=== PATIENT | male | born 1950 | race Hispanic/Latino ===

== ENCOUNTER 2018-02-07 19:13 | Inpatient (IN) | payer OTHER ==
[2018-02-07 19:27] VITALS: BMI 26.5
[2018-02-07] MEDS ORDERED: Sodium Chloride 0.9% 1,000 ML IV STA (19:37)
--- NOTE | 2018-02-07 19:43 | ED PDOC ---
Arrival/HPI - General Chief Complaint: Weakness/Neurological Deficit Time Seen by Provider: 02/07/18 19:26 Historian: Patient - History of Present Illness Narrative History of Present Illness (Text): 02/07/18 19:38 68 y/o male, pmh including gastritis, psychiatric history including schizophrenia/depression, drug allergy to PPI and penicillin, biba for overdose on thioridazine 50mg/tablet x 10 tablet last night (unable to specify what time ) which he is feeling dizziness and anxious now. Pt. stated that he can't sleep , been feeling depress, trying to take thioridazine 50mg x 10 to sleep, stated that he has no homicidal or suicidal ideation but he is overdose on this medication. Pt. has no chest pain or shortness of breath, no night sweat, no night sweat, no other medical or psychological complaints. Past Medical History - Provider Review Nursing Documentation Reviewed: Yes - Past History Past History: Non-Contributing - Infectious Disease Hx of Infectious Diseases: None - Tetanus Immunization Tetanus Immunization: Unknown - Cardiac Hx Cardiac Disorders: No Hx Pacemaker: No - Pulmonary Hx Pneumonia: Yes - Neurological Hx Dizziness: Yes - HEENT Hx HEENT Disorder: No - Renal Hx Renal Disorder: No - Endocrine/Metabolic Hx Endocrine Disorders: No - Hematological/Oncological Hx Blood Disorders: No - Integumentary Hx Dermatological Disorder: No - Musculoskeletal/Rheumatological Hx Falls: No - Gastrointestinal Hx Gastrointestinal Disorders: Yes Hx Gastroesophageal Reflux: Yes - Genitourinary/Gynecological Hx Genitourinary Disorders: No - Psychiatric Hx Depression: Yes Hx Emotional Abuse: No Hx Physical Abuse: No Hx Schizophrenia: Yes Hx Substance Use: No Other/Comment: ETOH - Past Surgical History Past Surgical History: Non-Contributing - Anesthesia Hx Anesthesia: Yes Hx Anesthesia Reactions: No Hx Malignant Hyperthermia: No - Suicidal Assessment Feels Threatened In Home Enviroment: No Family/Social History - Physician Review Nursing Documentation Reviewed: Yes Family/Social History: Unknown Family HX Smoking Status: Never Smoked Hx Alcohol Use: Yes Frequency of alcohol use: Few days per week Hx Substance Use: No Hx Substance Use Treatment: No Allergies/Home Meds Allergies/Adverse Reactions: Allergies aripiprazole [From Abilify] Allergy (Verified 06/10/16 12:23) RASH Penicillins Allergy (Verified 06/10/16 12:23) RASH MAYONNAISE Adverse Reaction (Intermediate, Uncoded 07/05/12 16:56) NAUSEA Home Medications: Home Meds Medication Instructions Recorded Confirmed Atorvastatin [Lipitor] 10 mg PO DAILY 02/08/18 02/08/18 Enalapril Maleate [Vasotec] 2.5 mg PO DAILY 02/08/18 02/08/18 Levothyroxine [Synthroid] 0.05 mg PO DAILY 02/08/18 02/08/18 QUEtiapine [SEROquel] 50 mg PO BID 02/08/18 02/08/18 Thioridazine HCl 150 mg PO QAM 02/08/18 02/08/18 Thioridazine HCl 200 mg PO HS 02/08/18 02/08/18 Vit D 50,000 iu PO QWK 02/08/18 02/08/18 traZODone [trazODONE HYDROCHLORIDE] 50 mg PO DAILY 02/08/18 02/08/18 Review of Systems - Review of Systems Constitutional: absent: Fatigue, Fevers Eyes: absent: Vision Changes ENT: absent: Hearing Changes Respiratory: absent: SOB, Cough Cardiovascular: absent: Chest Pain, Syncope Gastrointestinal: absent: Abdominal Pain, Nausea, Vomiting Musculoskeletal: absent: Arthralgias Skin: absent: Rash, Pruritis Neurological: Other (+tremors). absent: Headache, Dizziness Psychiatric: Anxiety. absent: Depression, Suicidal Ideation Physical Exam Vital Signs Temp Pulse Resp BP Pulse Ox 02/08/18 13:00 78 18 139/87 98 02/08/18 11:30 82 99 H 144/78 02/08/18 09:20 90 18 131/81 98 02/08/18 07:27 98.4 F 90 18 143/90 98 02/08/18 06:33 93 H 18 133/89 97 02/08/18 03:00 98.5 F 97 H 18 132/85 98 02/08/18 01:29 101 H 18 114/72 97 02/07/18 22:14 102 H 18 119/78 98 02/07/18 19:13 98.2 F 115 H 16 107/73 93 L - Systems Exam Head: Present: Atraumatic, Normocephalic Pupils: Present: PERRL Extroacular Muscles: Present: EOMI Conjunctiva: Present: Normal Mouth: Present: Moist Mucous Membranes Neck: Present: Normal Range of Motion Respiratory/Chest: Present: Clear to Auscultation, Good Air Exchange. No: Respiratory Distress, Accessory Muscle Use Cardiovascular: Present: Regular Rate and Rhythm, Normal S1, S2. No: Murmurs Abdomen: No: Tenderness, Distention, Peritoneal Signs, Rebound, Guarding Back: Present: Normal Inspection. No: Midline Tenderness, Paraspinal Tenderness Upper Extremity: Present: Normal Inspection. No: Cyanosis, Edema Lower Extremity: Present: Normal Inspection. No: Edema Neurological: Present: GCS=15, CN II-XII Intact, Speech Normal, Motor Func Grossly Intact, Gait Normal, Memory Normal, Other (+tremors) Skin: Present: Warm, Dry, Normal Color. No: Rashes Psychiatric: Present: Alert, Oriented x 3, Normal Insight, Normal Concentration Medical Decision Making ED Course and Treatment: 02/07/18 19:51 -Labs/ck/ua/uds -ekg -cxr -cardiac cath rn -IVF -Poison control -Observe and reassess 02/07/18 20:01 -Poison control contacted, recommend ekg and supportive care at this point. 02/07/18 22:01 -EKG: Sinus Tachycardia @ 116 BPM, no ST elevation but there is mild nonspecific ST depression on lead II/V4/V5/V6, no T wave inversion, compared with previous ekg. -Chest xray show no active disease. -Labs show no significant findings except BUN 28 (IVF ordered), Creatine 1.6 from baseline) -Troponin 0.08, aspirin ordered, needs to be trended. -Acetaminophen/salicylate level within normal limit -UA ordered and pending -UDS ordered and pending -I spoke to the poison control, recommend continue to monitor the patient for any cardiac arrythmia and anticholinergic effects. -Paging Dr. Barnett for admission as the pmd is Dr. Parham. -All labs and radiology results discussed with the patient, he agreed to be admitted. 02/07/18 22:14 -I spoke to Dr. Barnett, discussed about this case/labs/radiology result including troponin, she would admit this patient to her service and agreed this patient needs ICU evaluation. -Paging ICU for consult for this case. 02/07/18 23:01 -Blood gas reviewed with Dr. Perez and agreed with the ICU decision -Dr. Montoya, ICU, came to evaluate the patient/labs/radiology result discussed , stated that this patient doesn't need ICU and Telemetry is sufficiency. Dr. Perez agreed with this consult. -Dr. Perez would put in the admission. - Critical Care Critical Care Minutes: 45 minutes Critical Care Time: Unstable Narrative Critical Care (Text): 02/07/18 22:01 Unstable vital sign/ST depression/overdose, needs IV hydration, ICU monitor, consults. - Lab Interpretations Lab Results: 02/07/18 20:19 02/07/18 20:19 Lab Results 02/07/18 22:37: pCO2 29 L, pO2 90.0, HCO3 18.4 L, ABG pH 7.41, ABG Total CO2 19.3 L, ABG O2 Saturation 98.1 H, ABG O2 Content 20.2, ABG Base Excess -4.8 L, ABG Hemoglobin 14.9, ABG Carboxyhemoglobin 1.1, POC ABG HHb (Measured) 1.9, ABG Methemoglobin 1.0, ABG O2 Capacity 20.6, Hgb O2 Saturation 96.0, FiO2 28.0 02/07/18 20:19: Salicylates < 1 L, Acetaminophen < 10.0 L 02/07/18 20:19: Sodium 141, Potassium 4.3, Chloride 102, Carbon Dioxide 19 L, Anion Gap 24 H, BUN 28 H, Creatinine 1.6 H, Est GFR ( Amer) 53, Est GFR ( Non-Af Amer) 43, Random Glucose 191 H, Calcium 9.9, Magnesium 2.1, Total Bilirubin 0.9, AST 31, ALT 28, Alkaline Phosphatase 143 H, Lactate Dehydrogenase 419, Total Creatine Kinase 119, Troponin I 0.08 D, Total Protein 9.0 H, Albumin 4.7, Globulin 4.3, Albumin/Globulin Ratio 1.1 02/07/18 20:19: PT 13.1 H, INR 1.15, APTT 28.4 02/07/18 20:19: WBC 9.9 D, RBC 4.74, Hgb 14.5, Hct 41.0 L, MCV 86.5, MCH 30.6, MCHC 35.4, RDW 12.8, Plt Count 432, MPV 9.9, Gran % 84.7 H, Lymph % (Auto) 10.0 L, [place] % (Auto) 5.0, Eos % (Auto) 0.1 L, Baso % (Auto) 0.2, Gran # 8.40 H, Lymph # (Auto) 1.0 L, [place] # (Auto) 0.5, Eos # (Auto) 0.0, Baso # (Auto) 0.02 I have reviewed the lab results: Yes - RAD Interpretation Radiology Orders: 02/07/18 19:38 CHEST PORTABLE [RAD] Stat no active disease Disability Representative: Radiologist - EKG Interpretation EKG Interpretation (Text): 02/07/18 20:11 Sinus Tachycardia @ 116 BPM, no ST elevation but there is mild nonspecific ST depression on lead II/V4/V5/V6, no T wave inversion, compared with previous ekg. Interpreted by ED Physician: Yes Type: 12 lead EKG Comparison: Com.w/previous EKG - Medication Orders Current Medication Orders: Allopurinol (Zyloprim) 100 mg PO DAILY [facility] Last Admin: 02/08/18 10:57 Dose: 100 mg Aspirin (Aspirin Chewable) 81 mg PO DAILY [facility] Last Admin: 02/08/18 10:56 Dose: 81 mg Atorvastatin Calcium (Lipitor) 10 mg PO DIN [facility] Last Admin: 02/07/18 22:40 Dose: 10 mg Sodium Chloride (Sodium Chloride 0.9%) 1,000 mls @ 100 mls/hr IV .Q10H [facility] Last Admin: 02/08/18 07:02 Dose: 100 mls/hr eMAR Start Stop Document 02/08/18 07:02 AD (Rec: 02/08/18 07:02 AD [id number]) Intravenous Solution Start Date 02/08/18 Start Time 07:02 Meclizine HCl (Antivert) 25 mg PO TID [facility] Last Admin: 02/08/18 10:56 Dose: 25 mg Trazodone HCl (Desyrel) 50 mg PO HS [facility] Discontinued Medications Aspirin (Aspirin) 325 mg PO STAT STA Stop: 02/07/18 21:08 Last Admin: 02/07/18 21:30 Dose: 325 mg Sodium Chloride (Sodium Chloride 0.9%) 1,000 mls @ 999 mls/hr IV .Q1H1M [facility] Stop: 02/07/18 20:37 Last Admin: 02/07/18 20:15 Dose: 999 mls/hr eMAR Start Stop Document 02/07/18 20:15 AD (Rec: 02/07/18 20:[address] [id number]) Intravenous Solution Start Date 02/07/18 Start Time 20:15 - PA / ASSOCIATE DIRECTOR CAREER SERVICES / Resident Statement / has reviewed & agrees with the documentation as recorded. Disposition/Present on Arrival - Present on Arrival Any Indicators Present on Arrival: No History of DVT/PE: No History of Uncontrolled Diabetes: No Urinary Catheter: No History of Decub. Ulcer: No History Surgical Site Infection Following: None - Disposition Have Diagnosis and Disposition been Completed?: Yes Diagnosis: Overdose, Elevated troponin Disposition: HOSPITALIZED Disposition Time: 22:05 Patient Plan: Admission, Observation, Telemetry Patient Problems: Current Active Problems Problem Status Onset Elevated troponin Acute Overdose Acute Condition: GUARDED
[2018-02-07 20:44] LABS: BASO # 0.02 K/mm3 (0.0-2.0); BASO % 0.2 % (0.0-3.0); EOS % 0.1 % (1.5-5.0); GRAN # 8.4 (1.4-6.5); GRAN % 84.7 % (50.0-68.0); HEMOGLOBIN 14.5 g/dL (14.0-18.0); MEAN CELL VOLUME 86.5 fl (80.0-105.0); MEAN CORPUSCULAR HEMOGLOBIN 30.6 pg (25.0-35.0); MEAN CORPUSCULAR HGB CONC 35.4 g/dl (31.0-37.0); MEAN PLATELET VOLUME 9.9 fl (7.0-11.0); MONO # 0.5 (0.1-0.6); RBC 4.74 10^6/uL (3.5-6.1); RED CELL DISTRIBUTION WIDTH 12.8 % (11.5-14.5); WHITE BLOOD COUNT 9.9 10^3/ul (4.5-11.0)
[2018-02-07 20:48] LABS: INR 1.15; PARTIAL THROMBOPLASTIN TIME 28.4 Seconds (25.1-36.5); PROTHROMBIN TIME 13.1 SECONDS (9.4-12.5)
[2018-02-07 20:53] LABS: ACETAMINOPHEN < 10.0 ug/ml (10.0-20.0); ALB/GLOB RATIO 1.1 (1.1-1.8); ALBUMIN 4.7 g/dL (3.0-4.8); CALCIUM 9.9 mg/dL (8.4-10.5); SALICYLATE < 1 mg/dL (2.0-20.0)
[2018-02-07 21:03] LABS: TROPONIN I 0.08 ng/mL
[2018-02-07] MEDS: Sodium Chloride 0.9% 1,000 ML IV SCH (21:30)
[2018-02-07 22:39] LABS: ARTERIAL BLOOD GAS HCO3 18.4 mmol/L (21-28); ARTERIAL BLOOD GAS HEMOGLOBIN 14.9 g/dL (11.7-17.4); ARTERIAL BLOOD GAS O2 CAPACITY 20.6 mL/dl (16-24); ARTERIAL BLOOD GAS O2 CONTENT 20.2 ML/dl (15-23); ARTERIAL BLOOD GAS O2 SAT 98.1 % (95-98); ARTERIAL BLOOD GAS PCO2 29 mm/Hg (35-45); ARTERIAL BLOOD GAS PH 7.41 (7.35-7.45); ARTERIAL BLOOD GAS TCO2 19.3 mmol.L (22-28)
--- NOTE | 2018-02-07 23:42 | CP.PCM.CON ---
<Joel Persaud - Last Filed: 02/07/18 23:36> History of Present Illness - History of Present Illness History of Present Illness: ICU Consult Note (Dr. Mijares)- Elsie PGY2 CC: Thioridazine Overdose HPI: Mr. Rodríguez is a 68 year old male with a past medical history significant for schizophrenia, depression, gastritis with gastric ulcer (EGD 2012), HTN, and HLD who presents for thioridazine overdose. Patient is currently alert and oriented to person, place, time and event. Patient reports that overnight he was having difficulty falling asleep and decided to take his thioridazine since it normally makes him tired. He decided to take ten 50mg tablets at one time, approximate time of ingestion patient can't recall. Patient then reports feeling lightheaded and anxious for several hours and then decided to come to the ED. Patient denies any suicidal or homicidal ideation but does report that he has been feeling "down" for several weeks now with no apparent reason known to him. He denies any fevers, chills, headache, chest pain , palpitations, SOB, cough, wheezing, abdominal pain, N/V/D/C, changes in urine output, skin changes or any numbness/tingling of any extremity. PMH: As stated above PSH: Denies Family History: Father- of stroke Social History: Former smoker, drinks one to two beers every other day on average and denies any illicit drug use Allergies: Abilify, PCN, Mayonnaise Home Medications: As per MAR Review of Systems - Review of Systems Review of Systems: As stated in HPI, otherwise negative Past Patient History - Infectious Disease Hx of Infectious Diseases: None - Tetanus Immunizations Tetanus Immunization: Unknown - Past Social History Smoking Status: Never Smoked - CARDIAC Hx Cardiac Disorders: No Hx Pacemaker: No - PULMONARY Hx Pneumonia: Yes - NEUROLOGICAL Hx Dizziness: Yes - HEENT Hx HEENT Problems: No - RENAL Hx Chronic Kidney Disease: No - ENDOCRINE/METABOLIC Hx Endocrine Disorders: No - HEMATOLOGICAL/ONCOLOGICAL Hx Blood Disorders: No - INTEGUMENTARY Hx Dermatological Problems: No - MUSCULOSKELETAL/RHEUMATOLOGICAL Hx Falls: No - GASTROINTESTINAL Hx Gastrointestinal Disorders: Yes Hx Gastroesophageal Reflux: Yes - GENITOURINARY/GYNECOLOGICAL Hx Genitourinary Disorders: No - PSYCHIATRIC Hx Depression: Yes Hx Emotional Abuse: No Hx Physical Abuse: No Hx Schizophrenia: Yes Hx Substance Use: No Other/Comment: ETOH - SURGICAL HISTORY Hx Surgeries: No - ANESTHESIA Hx Anesthesia: Yes Hx Anesthesia Reactions: No Hx Malignant Hyperthermia: No Meds Allergies/Adverse Reactions: Allergies Allergy/AdvReac Type Severity Reaction Status Date / Time aripiprazole [From Abilify] Allergy RASH Verified 06/10/16 12:23 Penicillins Allergy RASH Verified 06/10/16 12:23 MAYONNAISE AdvReac Intermediate NAUSEA Uncoded 07/05/12 16:56 - Medications Medications: Current Medications Allopurinol (Zyloprim) 100 mg PO DAILY [facility] Aspirin (Aspirin Chewable) 81 mg PO DAILY [facility] Atorvastatin Calcium (Lipitor) 10 mg PO DIN [facility] Last Admin: 02/07/18 22:40 Dose: 10 mg Sodium Chloride (Sodium Chloride 0.9%) 1,000 mls @ 100 mls/hr IV .Q10H [facility] Last Admin: 02/07/18 21:30 Dose: 100 mls/hr Meclizine HCl (Antivert) 25 mg PO TID [facility] Trazodone HCl (Desyrel) 50 mg PO HS [facility] Physical Exam - Constitutional Appears: Non-toxic, No Acute Distress - Head Exam Head Exam: ATRAUMATIC, NORMOCEPHALIC - Eye Exam Eye Exam: EOMI, Normal appearance, PERRL - ENT Exam ENT Exam: Mucous Membranes Dry - Neck Exam Neck exam: Positive for: Full Rom. Negative for: Meningismus, Tenderness - Respiratory Exam Respiratory Exam: Clear to Auscultation Bilateral, NORMAL BREATHING PATTERN. absent: Accessory Muscle Use, Chest Wall Tenderness, Decreased Breath Sounds, Prolonged Expiratory Phase, Rales, Rhonchi, Wheezes, Respiratory Distress, Stridor - Cardiovascular Exam Cardiovascular Exam: Tachycardia, REGULAR RHYTHM, +S1, +S2. absent: Bradycardia , Clicks, Diastolic murmur, Gallop, Irregular Rhythm, JVD, RRR, Rubs, +S4, Systolic Murmur - GI/Abdominal Exam GI & Abdominal Exam: Normal Bowel Sounds, Soft. absent: Tenderness - Extremities Exam Extremities exam: Positive for: normal capillary refill, pedal pulses present. Negative for: calf tenderness, joint swelling, pedal edema, tenderness - Back Exam Back exam: absent: CVA tenderness (L), CVA tenderness (R) - Neurological Exam Neurological exam: Alert, Oriented x3 - Psychiatric Exam Psychiatric exam: Normal Affect, Normal Mood - Skin Skin Exam: Dry, Intact, Normal Color, Warm Results - Vital Signs Recent Vital Signs: Last Vital Signs Temp 98.2 F 02/07/18 19:13 Pulse 115 H 02/07/18 19:13 Resp 16 02/07/18 19:13 BP 107/73 02/07/18 19:13 Pulse Ox 93 L 02/07/18 19:13 - Labs Result Diagrams: 02/07/18 20:19 02/07/18 20:19 Labs: Laboratory Results - last 24 hr 02/07/18 02/07/18 02/07/18 20:19 20:19 20:19 WBC 9.9 D RBC 4.74 Hgb 14.5 Hct 41.0 L MCV 86.5 MCH 30.6 MCHC 35.4 RDW 12.8 Plt Count 432 MPV 9.9 Gran % 84.7 H Lymph % (Auto) 10.0 L [place] % (Auto) 5.0 Eos % (Auto) 0.1 L Baso % (Auto) 0.2 Gran # 8.40 H Lymph # (Auto) 1.0 L [place] # (Auto) 0.5 Eos # (Auto) 0.0 Baso # (Auto) 0.02 PT 13.1 H INR 1.15 APTT 28.4 pCO2 pO2 HCO3 ABG pH ABG Total CO2 ABG O2 Saturation ABG O2 Content ABG Base Excess ABG Hemoglobin ABG Carboxyhemoglobin POC ABG HHb (Measured) ABG Methemoglobin ABG O2 Capacity Hgb O2 Saturation FiO2 Sodium 141 Potassium 4.3 Chloride 102 Carbon Dioxide 19 L Anion Gap 24 H BUN 28 H Creatinine 1.6 H Est GFR ( Amer) 53 Est GFR (Non-Af Amer) 43 Random Glucose 191 H Calcium 9.9 Magnesium 2.1 Total Bilirubin 0.9 AST 31 ALT 28 Alkaline Phosphatase 143 H Lactate Dehydrogenase 419 Total Creatine Kinase 119 Troponin I 0.08 D Total Protein 9.0 H Albumin 4.7 Globulin 4.3 Albumin/Globulin Ratio 1.1 Salicylates Acetaminophen 02/07/18 02/07/18 20:19 22:37 WBC RBC Hgb Hct MCV MCH MCHC RDW Plt Count MPV Gran % Lymph % (Auto) [place] % (Auto) Eos % (Auto) Baso % (Auto) Gran # Lymph # (Auto) [place] # (Auto) Eos # (Auto) Baso # (Auto) PT INR APTT pCO2 29 L pO2 90.0 HCO3 18.4 L ABG pH 7.41 ABG Total CO2 19.3 L ABG O2 Saturation 98.1 H ABG O2 Content 20.2 ABG Base Excess -4.8 L ABG Hemoglobin 14.9 ABG Carboxyhemoglobin 1.1 POC ABG HHb (Measured) 1.9 ABG Methemoglobin 1.0 ABG O2 Capacity 20.6 Hgb O2 Saturation 96.0 FiO2 28.0 Sodium Potassium Chloride Carbon Dioxide Anion Gap BUN Creatinine Est GFR ( Amer) Est GFR (Non-Af Amer) Random Glucose Calcium Magnesium Total Bilirubin AST ALT Alkaline Phosphatase Lactate Dehydrogenase Total Creatine Kinase Troponin I Total Protein Albumin Globulin Albumin/Globulin Ratio Salicylates < 1 L Acetaminophen < 10.0 L Assessment & Plan - Assessment and Plan (Free Text) Assessment: 68 year old male with a past medical history significant for schizophrenia, depression, gastritis with gastric ulcer (EGD 2012), HTN, and HLD who presents for thioridazine overdose. Plan: Patients chart, including most recent vital signs, labs and imaging, reviewed with attending. Currently, patient does not meet ICU admission criteria given his hemodynamic status, appropriate mental status and ability to maintain his own airway. Poison control was contacted and recommended supportive care. Further recommendations per primary team. Please reconsult as needed. - Date & Time Date: 02/08/18 Time: 01:02 <Constantine Mijares - Last Filed: 02/08/18 05:26> Meds - Medications Medications: Current Medications Allopurinol (Zyloprim) 100 mg PO DAILY [facility] Aspirin (Aspirin Chewable) 81 mg PO DAILY [facility] Atorvastatin Calcium (Lipitor) 10 mg PO DIN [facility] Last Admin: 02/07/18 22:40 Dose: 10 mg Sodium Chloride (Sodium Chloride 0.9%) 1,000 mls @ 100 mls/hr IV .Q10H [facility] Last Admin: 02/07/18 21:30 Dose: 100 mls/hr Meclizine HCl (Antivert) 25 mg PO TID [facility] Trazodone HCl (Desyrel) 50 mg PO HS [facility] Results - Vital Signs Recent Vital Signs: Last Vital Signs Temp 98.2 F 02/07/18 19:13 Pulse 97 H 02/08/18 03:00 Resp 18 02/08/18 03:00 BP 132/85 02/08/18 03:00 Pulse Ox 98 02/08/18 03:00 - Labs Result Diagrams: 02/07/18 20:19 02/07/18 20:19 Labs: Laboratory Results - last 24 hr 02/07/18 02/08/18 02/08/18 23:20 04:15 04:15 Troponin I 0.07 Triglycerides 118 Cholesterol 138 LDL Cholesterol Direct 76 HDL Cholesterol 35 Urine Color Yellow Urine Appearance Slight-cloudy Urine pH 6.0 Ur Specific [place] >= 1.030 Urine Protein 30 H Urine Glucose (UA) Negative Urine Ketones 15 H Urine Blood Negative Urine Nitrate Negative Urine Bilirubin Small H Urine Urobilinogen 0.2 Ur Leukocyte Esterase Negative Urine RBC Negative Urine WBC 0 - 2 Ur Epithelial Cells 4 - 5 Urine Bacteria Mod Hyaline Casts 0 - 2 Urine Other Mucus Urine Opiates Screen Negative Urine Methadone Screen Negative Ur Barbiturates Screen Negative Ur Phencyclidine Scrn Negative Ur Amphetamines Screen Negative U Benzodiazepines Scrn Negative U Oth Cocaine Metabols Negative U Cannabinoids Screen Positive H Attending/Attestation - Attestation I have personally seen and examined this patient.: Yes I have fully participated in the care of the patient.: Yes I have reviewed all pertinent clinical information: Yes Notes (Text): Pt. claimed he was trying to sleep and took 10 tabs of Seroquel 100 mg and 8 tabs of thioridazine. Recommend Tele admit, serial EKG, Mg, phos and troponin, 1 :1 sitter, psych consult to R/O Suicide intent and poison control contact. 02/08/18 05:24
[2018-02-07 23:55] LABS: TROPONIN I 0.07 ng/mL
[2018-02-08 04:42] LABS: URINE BILIRUBIN SMALL (NEGATIVE); URINE BLOOD NEGATIVE (NEGATIVE); URINE GLUCOSE (UA) NEGATIVE (NEGATIVE); URINE LEUKOCYTE ESTERASE NEGATIVE Leu/uL (NEGATIVE); URINE PROTEIN 30 mg/dL (<30 mg/dL); URINE UROBILINOGEN 0.2 E.U./dL (<1 E.U./dL)
[2018-02-08 04:43] LABS: URINE APPEARANCE SLIGHT-CLOUDY (CLEAR); URINE COLOR YELLOW (YELLOW)
[2018-02-08 05:07] LABS: URINE RBC NEGATIVE /hpf (0-2); URINE WBC 0 - 2 /hpf (0-6)
[2018-02-08 05:08] LABS: URINE BACTERIA MOD (NEG); URINE HYALINE CAST 0 - 2 /hpf
[2018-02-08 05:13] LABS: BENZODIAZEPINES, UR NEGATIVE (NEGATIVE); PHENCYCLIDINE, UR NEGATIVE (NEGATIVE)
[2018-02-08 05:15] LABS: BARBITURATES, UR NEGATIVE (NEGATIVE); OPIATES, UR NEGATIVE (NEGATIVE)
[2018-02-08 05:36] LABS: BASO # 0.04 K/mm3 (0.0-2.0); BASO % 0.6 % (0.0-3.0); EOS # 0.2 (0.0-0.7); EOS % 2.4 % (1.5-5.0); GRAN # 4.56 (1.4-6.5); GRAN % 68.4 % (50.0-68.0); HEMOGLOBIN 12.8 g/dL (14.0-18.0); LYMPH # 1.3 (1.2-3.4); LYMPH % 19.8 % (22.0-35.0); MEAN CELL VOLUME 86.3 fl (80.0-105.0); MEAN CORPUSCULAR HEMOGLOBIN 30.3 pg (25.0-35.0); MEAN CORPUSCULAR HGB CONC 35.2 g/dl (31.0-37.0); MEAN PLATELET VOLUME 9.7 fl (7.0-11.0); MONO # 0.6 (0.1-0.6); MONO % 8.8 % (1.0-6.0); RBC 4.22 10^6/uL (3.5-6.1)
[2018-02-08 05:37] LABS: WHITE BLOOD COUNT 6.7 10^3/ul (4.5-11.0)
[2018-02-08 06:00] LABS: ALBUMIN 3.6 g/dL (3.0-4.8); ALT/SGPT 29 U/L (7-56); AST/SGOT 34 U/L (17-59); BLOOD UREA NITROGEN 26 mg/dL (7-21); CALCIUM 8.5 mg/dL (8.4-10.5); GFR NON-AFRICAN AMERICAN > 60
[2018-02-08] MEDS: Sodium Chloride 0.9% 1,000 ML IV SCH (07:02)
[2018-02-08 08:03] LABS: FREE T4 1.34 ng/dL (0.78-2.19)
--- NOTE | 2018-02-08 09:35 | HP ---
Copied To: Jenna Barnett MD Attending MD: Jenna Barnett MD HISTORY OF PRESENT ILLNESS: The patient is 68 years old with longstanding history of paranoid schizophrenia and depression. Patient states he has been having difficulty sleeping lately so last night, he took 10 tablets of thioridazine so he can sleep. He denies suicidal ideation. He does not want to kill himself. He wanted to have a good night sleep. He came to Emergency Room because of feeling weak, tired, dizzy, lightheaded. Denies any nausea or vomiting. No history of abdominal pain. No fever. No chills. No cough, congestion. PAST MEDICAL HISTORY: Significant for: 1. Hypertension. 2. Hyperlipidemia. 3. History of chronic kidney disease. 4. Peptic ulcer disease. ALLERGIES: HE IS ALLERGIC TO PENICILLIN, ABILIFY AND OMEPRAZOLE. MEDICATIONS AT HOME: He is on atorvastatin 10 mg daily, aspirin 81 daily, allopurinol 100 mg daily, trazodone 50 mg at bedtime, thioridazine 50 mg daily, meclizine 25 three times a day. SOCIAL HISTORY: Denies smoking, drinking; however, drinks socially once in a while. REVIEW OF SYSTEMS: Generalized weakness, feeling weak, dizzy. PHYSICAL EXAMINATION: GENERAL: He is awake, alert, oriented, able to communicate. VITAL SIGNS: He is afebrile, pulse 115, respirations 16, blood pressure 107/73. LUNGS: Bilateral fair airflow. No rhonchi or crackle. HEART: S1, S2 audible. ABDOMEN: Soft, obese, nontender. No rebound. No guarding. NEUROLOGICAL: He is awake, alert, oriented, communicative. LABORATORY DATA: WBC is 9.9, hemoglobin 14.5, hematocrit 41, platelets 432. PT 13.1. INR 1.15. Chemistry: Sodium 141, potassium 4.3, chloride 102, CO2 19, BUN 28, creatinine 1.6. Blood sugar 191. LFTs are within normal limit. Alkaline phosphatase 143, total protein 9. Urine tox shows Tylenol less than 10. Salicylate less than 1. DIAGNOSTIC DATA: X-ray of chest is unremarkable. ASSESSMENT AND PLAN: 1. Generalized weakness and dizziness secondary to overdose of thioridazine. 2. History of schizophrenia. 3. Hypertension. 4. Chronic kidney disease. 5. Hyperlipidemia. So, plan is patient will be observed overnight in ICU. Start him on IV fluid. We will monitor his electrolyte. We will resume his usual medication and also request for Psychiatric consult. Jenna Barnett MD
--- NOTE | 2018-02-08 10:04 | RAD ---
Date of service: 02/07/2018 HISTORY: medical clearance COMPARISON: 06/10/2016 FINDINGS: LUNGS: No active pulmonary disease. PLEURA: No significant pleural effusion identified, no pneumothorax apparent. CARDIOVASCULAR: Normal. OSSEOUS STRUCTURES: No significant abnormalities. VISUALIZED UPPER ABDOMEN: Normal. OTHER FINDINGS: None. IMPRESSION: No active disease.
--- NOTE | 2018-02-08 11:06 | CARD ---
APPROVED REPORT Date of service: 02/07/2018 EKG Measurement Heart [id number] <Conclusion> Sinus tachycardia LAD PRWP Nonspecific ST abnormality Prolonged QTc
[2018-02-08] MEDS ORDERED: Pneumococcal 23-Valent Vaccine IM ONE (15:46)
[2018-02-08] MEDS ORDERED: Potassium Chloride 20 mEq ER Tab PO ONE (17:30)
--- NOTE | 2018-02-08 21:32 | PN ---
Copied To: Jenna Barnett MD Attending MD: Jenna Barnett MD DATE: 02/08/2018 SUBJECTIVE: The patient is 68 years old, who came last night and he was sleepy, lethargic and was feeling lightheaded. The patient states he has no intention to have suicidal attempt; however, he wanted to have a good sleep. PHYSICAL EXAMINATION: GENERAL: He is awake, alert, oriented, communicative. VITAL SIGNS: He is afebrile, pulse 97, respirations 18, blood pressure 147/83. LUNGS: Bilateral fair airflow. No rhonchi or crackle. HEART: S1 and S2 audible. ABDOMEN: Soft. Nontender. No rebound. No guarding. NEUROLOGICAL: The patient is awake, alert, oriented, communicative. LABORATORY EXAM: WBC 6.9, hemoglobin 12.8, hematocrit 36.4, platelet 381. Chemistry: Sodium 142, potassium 3.5, chloride 108, CO2 of 20, BUN 26, creatinine 1.2, blood sugar of 121. LFTs are within normal limit. Urine tox positive for marijuana. ASSESSMENT: 1. Status post drug overdose. The patient is clinically stable and EKG is stable. 2. History of hypertension. 3. Hyperlipidemia. 4. History of schizophrenia. 5. History of depression. 6. Gastritis. PLAN: The patient will be admitted on Med-Surg. We will resume his usual medications. Awaiting Psych input. The patient is eating and tolerating. I will discontinue IV fluid. We will follow up his electrolyte in the a.m. Jenna Barnett MD
[2018-02-09 07:27] LABS: ALBUMIN 3.8 g/dL (3.0-4.8); ALT/SGPT 23 U/L (7-56); AST/SGOT 29 U/L (17-59); BLOOD UREA NITROGEN 12 mg/dL (7-21); GFR NON-AFRICAN AMERICAN > 60
--- NOTE | 2018-02-09 08:06 | CON ---
Copied To: Osorio Worley MD Attending MD: Osorio Worley MD DATE: 02/08/2018 HISTORY OF PRESENT ILLNESS: Please note that the patient was very reluctant regarding participation in interview with me due to his paranoia. I was able to obtain some information directly from the patient and other information was obtained from ER report. Please note that Mr. Rodríguez is a 68-year-old male with a psychiatric history of schizophrenia versus depression with psychotic features versus schizoaffective disorder (the patient likely is suffering from schizoaffective disorder), who denies any prior history of suicide attempt; however, does report history of depression and hallucinations, who presented to the ER because of thioridazine overdose. The patient was noted to be alert and oriented to person, place, time and events when he was consulted by Dr. Persaud in the ICU. Apparently, the patient told to Dr. Persaud that he took ten 50 mg tablets, one at a time, off the Mellaril because he has trouble falling asleep. When I met with him at bedside, he actually refused to discuss the circumstances of his presentation indicating that he did not trust me. He continues to be resistant to engage in a conversation with me even after I dismiss the two medical students that were at my side to ensure privacy. The patient did indicate that he was not trying to suicide, due to prior ingestion of the Mellaril; however, admitted has been having depression and recurrent hallucinations. He did look paranoid, affect constricted, guarded, anxious and internally preoccupied. He did not appear to be responding to internal stimuli, but he is notably paranoid. His insight and judgment considering his lack of cooperation is poor at this time even when I explained purpose for my visit and interview. PSYCHIATRIC HISTORY: According to patient, he is reluctant to share with me his He has no suicide attempts. He suffers from depression and hallucinations, he is seeing an outpatient psychiatrist; however, was not provided us information as to who he sees. Apparently, the patient is prescribed Mellaril by somebody. SOCIAL HISTORY: The patient any information about his social history, although denies excessive alcohol use and denies any drug use. MEDICATIONS: It does appear that the patient was prescribed trazodone 50 mg at bedtime and Mellaril 50 mg; however, it is unclear who prescribed these medications as the patient will not provide this information. IMPRESSION: Schizoaffective disorder, rule out delirium. RECOMMENDATIONS: At this time, the patient is not psychiatrically to discuss circumstances or history with this provider. I cannot adequately clear him at this time as most information could not be obtained. I will continue to visit with patient, and try to elicit his cooperation and trust. In the meantime, medical team should try as much as possible to obtain collateral contacts from the patient collateral about this patient. Dr. Worley will follow up with the patient on , 02/09/2018. Osorio Worley MD
[2018-02-09 08:24] VITALS: RESP 20
--- NOTE | 2018-02-09 09:39 | CARD ---
APPROVED REPORT Date of service: 02/08/2018 EKG Measurement Heart [id number] <Conclusion> Normal sinus rhythm LAD PRWP Nonspecific ST and T wave abnormality, difuse. Increased c/w ECG 02/07/18
[2018-02-09 17:34] VITALS: BP 160/95; PULSE 109; TEMP 97.8; O2SAT 98
--- NOTE | 2018-02-10 00:05 | CON ---
Copied To: Lisandro Almendarez MD/ PhD Attending MD: Lisandro Almendarez MD/ PhD DATE: 02/09/2018 IDENTIFYING INFORMATION: The patient is a 68-year-old single white male who carries with him a diagnosis of schizophrenia. HISTORY OF PRESENT ILLNESS: The patient indicated he had overdosed on 10 pills of Mellaril because he was having a "nervous breakdown," with he recently having been changed by his treating nurse practitioner [facility]. He also started drinking alcohol the other week. His initial complaint in the emergency room was weakness, fatigue, dizziness, lightheadedness. PAST MEDICAL HISTORY: He has a past medical history of hypertension, hyperlipidemia, history of chronic kidney disease and peptic ulcer disease. The patient is a [place] where he grew up. 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 He was left back in the 9th grade for reasons uncertain. He indicated that earlier in his life, he had an alcohol problem. Sometimes in his 20s, he was diagnosed with schizophrenia. He indicates he has had a number of psychiatric hospitalizations, these being at the [facility]. He has been under the care of the [facility] for many years. Review of our electronic medical records going back to 03/2012 does not reveal any psychiatric hospitalizations. The patient denies to me a medical history. He indicated that he is the oldest of his parents' 4 children including 3 sisters. No others have psychiatric disorders. His mother is 93 years old, live and lives in [place]. His father several years ago. The patient is presently alert, oriented to three spheres, connected, denies psychotic or suicidal or homicidal ideation at this time. He had been seen yesterday by Psychiatry who observes that he had early stated that he took ten 50 mg tablets of Mellaril because he was having trouble falling asleep. To Dr. Worley, he refused to discuss any circumstances of his presentation and he did not trust (he was paranoid) Dr. Worley. He seems to be doing better with me. Here, he is receiving no psychotropic medication. I will put the patient back on Mellaril (he indicates he takes about 200 mg per day). DIAGNOSIS: Paranoid schizophrenia. Unfortunately, Mellaril is not on the hospital formulary. I will inform the patient and see what he wants to do with this pharmacy deficit. I will write a prescription for Mellaril for the patient. Thank you as always for this consultation. Lisandro Almendarez MD/ PhD
--- NOTE | 2018-02-10 08:02 | CON ---
Copied To: Osorio Worley MD Attending MD: Osorio Worley MD DATE: 02/09/2018 HISTORY OF PRESENT ILLNESS: The patient is , 68-year-old male with psychiatric history of likely schizoaffective disorder, with 2 to 3 prior psychiatric hospitalizations, voluntary, never involuntary, in treatment at [facility] with nurse practitioner, Clover and complying with prescribed Mellaril, who was admitted to medical floor after taking too much Mellaril with prescribed psychiatric medications in attempts to go to sleep. I met with him at bedside yesterday, he is quite paranoid and distressed; however, he presents quite decently today. He is much more engaged, oriented, pleasant, and he is reactive and appropriate. The patient states that he was paranoid yesterday because of police matron after he called for help and he was tired of being questioned by everybody. He denies having any paranoia right now or any hallucinations. He denies feeling depressive at this time and he denies having any suicidal thoughts and denies having taking the Mellaril as a suicide attempt. Much more forthcoming about his history, he is coherent, he is not hallucinating, he is not responding to internal stimuli. He denies any old not elicited. The patient reports he saw his DIRECTOR OF CUSTOMER ACQUISITION, Clover, approximately 6 weeks ago and was prescribed Mellaril and Thorazine was continued at that time. He would like to continue his Mellaril as it has been beneficial for about 20 years. There have been no behavioral issues on the medical floor thus far and the patient is presenting much better than he did yesterday. Insight and judgment are improving nicely. PSYCHIATRIC HISTORY: The patient reports that he has been hospitalized 2 to 3 times in his lifetime, most recently about 6 years ago. The patient denies any involuntary hospitalizations. He denies any suicide attempts. He reports that he has been seeing nurse practitioner, Clover, at [facility] and he is being prescribed Mellaril, Thorazine was recently discontinued as it was not beneficial for him. Last followup with Clover was 6 weeks ago and is planned to see Clover next month. SOCIAL HISTORY: The patient reports that he lives by himself, he , has no children. He has no kids. He is retired, he is volunteer at [employer]. He denies any drugs or alcohol issues. Vital signs and labs were reviewed. Of note, UDS is positive for marijuana, which the patient denied . Currently, the patient has been prescribed trazodone 50 mg at bedtime and Mellaril was held due to the patient's overdose. IMPRESSION: Schizoaffective disorder by history, noncontributory to the patient's initial presentation, delirium, which is resolving as well as marijuana abuse, substance abuse, paranoia, which is also being resolved. RECOMMENDATIONS: We will continue with trazodone 50 mg at bedtime as the patient reported that he is taking this medication in the past and has been beneficial . We will not refill Mellaril as I do not know current dose neither the patient. However, the patient continued to taking this medications as prescribed once he medically cleared and discharged. The patient does not want psychiatric hospitalization, does not meet criteria at this time. I left a message with requesting Clover AGUILAR's contact information, so that DIRECTOR OF CUSTOMER ACQUISITION might be informed of the patient's presentation to ER and his subsequent hospitalization. This was done at 12:40 p.m. today . The patient does not appear to require acute inpatient psychiatric stabilization. He does not appear to be acutely psychotic or suicidal and well related and much more consistent and coherent with his response today. Also, there has been no behavioral issues thus far. He is psychiatrically cleared at this time. Medical team should make an effort to contact the patient's provider and provider informed of the patient's current medical treatment. The patient is agreeable to this collateral contact. At this time, Psychiatry will sign off. Please re-consult p.r.n. if the patient has presentation changes. Osorio Worley MD
--- NOTE | 2018-02-10 09:40 | DS ---
Copied To: Jenna Barnett MD Attending MD: Jenna Barnett MD HISTORY OF PRESENT ILLNESS: Patient is 68 years old, seen and examined, ambulating. No nausea or vomiting. No diarrhea. PHYSICAL EXAMINATION: VITAL SIGNS: Patient is afebrile, pulse 90, respirations 20, blood pressure 156/92. LUNGS: Bilateral good airflow. No rhonchi or crackle. HEART: S1 and S2 audible. ABDOMEN: Soft and nontender. No rebound. No guarding. NEUROLOGIC: Patient is awake, alert, oriented, communicative, ambulatory. LABORATORY DATA: Sodium 143, potassium 3.8, chloride 108, CO2 of 22, BUN 12, creatinine 1, blood sugar 198. His drug screen positive for marijuana. ASSESSMENT: 1. Status post intentional overdose to have a good sleep. Patient has a history of schizophrenia. 2. History of hypertension and hyperlipidemia. PLAN: I have discussed with Dr. Almendarez who advised him to take thioridazine 50 mg every 6 hours and he was advised to follow up with mental health clinic when he usually goes, and patient is clinically and hemodynamically stable to be discharged home today. Jenna Barnett MD
== END 2018-02-09 19:07 | disposition home or self-care (01) | DRG 918 ==
LOC: ED 19:13 → ERH 22:48 → 3RSO 02-08 15:34
PROVIDERS: ADMIT Internal Medicine; ATTEND Internal Medicine
DX: T43.3X1A Poisoning by phenothiazine antipsychotics and neuroleptics, accidental (unintentional), initial encounter (principal); R53.1 Weakness; R42 Dizziness and giddiness; F20.0 Paranoid schizophrenia; N18.9 Chronic kidney disease, unspecified; I12.9 Hypertensive chronic kidney disease with stage 1 through stage 4 chronic kidney disease, or unspecified chronic kidney disease; F32.9 Major depressive disorder, single episode, unspecified; E78.5 Hyperlipidemia, unspecified; K29.70 Gastritis, unspecified, without bleeding; K21.9 Gastro-esophageal reflux disease without esophagitis; Z88.0 Allergy status to penicillin; Z87.891 Personal history of nicotine dependence; Z82.3 Family history of stroke